=== PATIENT | female | born 1985 | race African-American/Black ===

== ENCOUNTER 2019-11-26 10:15 | Emergency (ER) | payer MEDICAID ==
[~2019-11-26] VITALS: Ht 160 cm; Wt 56.0 kg
[2019-11-26] MEDS ORDERED: TETANUS, DIPHTHERIA, PERTUSSIS VAC/PF 0.5ML (>7YR OLD) IM ONE (11:00)
[2019-11-26] MEDS ORDERED: IBUPROFEN 800MG TABLET PO ONE (11:00)
[2019-11-26] MEDS ORDERED: ACETAMINOPHEN 500MG TABLET PO ONE (12:30)
[2019-11-26 13:24] VITALS: BP 138/80
== END 2019-11-26 13:36 | disposition home or self-care (01) ==
LOC: ER 10:15
DX: M25.532 Pain in left wrist (principal); V43.52XA Car driver injured in collision with other type car in traffic accident, initial encounter; W22.11XA Striking against or struck by driver side automobile airbag, initial encounter; Y93.89 Activity, other specified; Y92.89 Other specified places as the place of occurrence of the external cause; Y99.8 Other external cause status
CPT/HCPCS: 29125; 73110; 90471; 90715; 99283